=== PATIENT | male | born 1970 | race Caucasian/White ===

== ENCOUNTER 2020-10-13 05:38 | Emergency (ER) | payer OTHER ==
[2020-10-13 06:12] LABS: BASOPHIL 0.7 % (0-2); EOSINOPHIL 1.9 % (0-5); HGB 13.6 g/dl (13.2-18.0); LYMPHOCYTE 3.9 % (15-48); MCH 32.5 pg (25.0-31.0); MCHC 33.2 g/dL (32.0-36.0); MCV 97.9 fL (78.0-100.0); MONOCYTE 11.4 % (0-12); MPV 9.2 fL (6.0-9.5); NEUTROPHIL 81.4 % (41-80); NRBC 0; PLT 250 K/uL (150-400); RBC 4.19 M/uL (4.70-6.00); RDW 14.5 % (11.5-14.0); WBC 11.3 K/uL (4.0-10.5)
[2020-10-13 06:27] LABS: INR 1.22 (0.9-1.2); PROTHROMBIN TIME 14.8 SECONDS (11.8-13.4); PTT 40.2 SECONDS (24.4-34.7)
[2020-10-13 06:28] LABS: D-DIMER 0.7 ug/mLFEU (0.00-0.41)
[2020-10-13 06:37] LABS: ALBUMIN 3.5 g/dL (3.4-5.0); BILIRUBIN - TOTAL 0.9 mg/dL (0.2-1.0); BUN/CREAT RATIO (CALC) 15.5 RATIO; CREATININE 0.71 mg/dL (0.67-1.17); GLOBULIN (CALCULATION) 3.9 g/dL; POTASSIUM 4.3 mmol/L (3.5-5.1); TOTAL PROTEIN 7.4 g/dL (6.4-8.2)
[2020-10-13] MEDS ORDERED: AZITHROMYCIN 2250 MG PO (09:35)
[2020-10-13] MEDS ORDERED: TESSALON PERLE100 MG PO (09:35)
[2020-10-13] MEDS ORDERED: AUGMENTIN 875-1 EACH PO (09:35)
[2020-10-13] MEDS ORDERED: MEDROL 4MG DOSEP4 MG PO (09:35)
[2020-10-13] MEDS ORDERED: NORCO 5-325 TA1 EACH PO (09:35)
== END 2020-10-13 09:56 | disposition home or self-care (01) ==
LOC: FER 05:38
PROVIDERS: Emergency Medicine Emergency Medical Services
DX: J18.1 Lobar pneumonia, unspecified organism (principal); F17.210 Nicotine dependence, cigarettes, uncomplicated
CPT/HCPCS: 36415; 71045; 71275; 80053; 83690; 84484; 85025; 85379; 85610; 85730; 93005; J2270; J2405; J3010; J7030; Q9967